=== PATIENT | male | born 1995 | race Hispanic/Latino ===

== ENCOUNTER 2018-10-24 03:46 | Emergency (ER) | payer SELFPAY ==
[2018-10-24] MEDS ORDERED: Lidocaine 1% w/Epinephrine 1:100K 20 ML VIAL ONE (03:55)
--- NOTE | 2018-10-24 08:45 | CT ---
CT OF HEAD NONCONTRAST: INDICATION: Head injury, pain. FINDINGS: There is normal size of the ventricular system. No acute intracranial hemorrhage or mass effect or m idline shift. A right periorbital soft tissue hematoma is present. There is scattered paranasal sin us mucosal thickening. There is slight buckling of the nasal bones, age indeterminate. Recommend cl inical correlation. IMPRESSION: 1. No acute intracranial hemorrhage or mass effect. 2. Right periorbital soft tissue hematoma. 3. Slight buckling of the nasal bones. Correlate with physical exam to exclude new onset pain. POS: [facility]
== END 2018-10-24 04:40 | disposition home or self-care (01) ==
LOC: ERS 03:46
DX: S01.512A Laceration without foreign body of oral cavity, initial encounter (principal); F17.210 Nicotine dependence, cigarettes, uncomplicated; W22.8XXA Striking against or struck by other objects, initial encounter
CPT/HCPCS: 12013; 70450; J2001